=== PATIENT | male | born 1965 ===

== ENCOUNTER 2017-12-04 06:55 | Inpatient (IN) | payer OTHER ==
[2017-12-04] MEDS ORDERED: ONDANSETRON 4 MG INJ IV ×2 (09:00→20:30)
[2017-12-04] MEDS ORDERED: PROCHLORPERAZINE 10 MG INJ IV (09:00)
[2017-12-04] MEDS ORDERED: DIPHENHYDRAMINE 50 MG INJ IV (09:00)
[2017-12-04] MEDS ORDERED: HYDROmorphONE (0.2 MG/ML) 10ML SYG IV (09:00)
[2017-12-04] MEDS ORDERED: MEPERIDINE 25 MG INJ IV (09:00)
[2017-12-04] MEDS ORDERED: FENTAnyl 50 MCG/ML VIAL IV (09:00)
[2017-12-04] MEDS ORDERED: PROPOFOL 20 ML (09:01)
[2017-12-04] MEDS ORDERED: MIDAZOLAM 1 MG/ML 2 ML INJ (09:02)
[2017-12-04] MEDS ORDERED: LIDOCAINE 1% (MDV) 20 ML INJ (09:07)
[2017-12-04] MEDS ORDERED: CEFAZOLIN 1 GM INJ (09:19)
[2017-12-04] MEDS ORDERED: EPHEDrine SULFATE 50 MG/5 ML SYG ×2 (09:52→10:23)
[2017-12-04] MEDS ORDERED: ONDANSETRON 4 MG INJ (10:11)
[2017-12-04] MEDS ORDERED: FAMOTIDINE 20 MG INJ (10:11)
[2017-12-04] MEDS ORDERED: DEXAMETHASONE 4 MG/ML 1 ML INJ (10:11)
[2017-12-04] MEDS ORDERED: PHENYLephrine (100 MCG/ML) 5ML SYG ×2 (11:25→11:48)
[2017-12-04] MEDS ORDERED: GLYCOPYRROLATE 0.4 MG INJ (11:44)
[2017-12-04] MEDS: LABETALOL HCL 20MG INJ IV (12:22)
[2017-12-04] MEDS ORDERED: hydrALAzine 20 MG INJ IV (12:30)
[2017-12-04] MEDS: BENAZEPRIL 10 MG TAB PO (13:56)
[2017-12-04] MEDS: DEXTROSE 5%-0.45% NACL 1,000 ML IV (14:24)
[2017-12-04] MEDS: DOCUSATE SODIUM 100 MG CAP PO (20:50)
[2017-12-04] MEDS: HYDROCODONE/APAP (5/325) TAB PO (20:50)
[2017-12-05 05:37] LABS: ADD MAN DIFF? NO
[2017-12-05 05:41] LABS: WHITE BLOOD COUNT 12.3 10^3/ul (4.8-10.8)
[2017-12-05 05:41] LABS: BASOPHILS % 0.2 % (0.0-2.0); EOSINOPHILS # 0.1 10^3/ul (0.0-0.5); EOSINOPHILS % 0.6 % (0.0-7.0); HEMATOCRIT 41.2 % (42.0-52.0); HEMOGLOBIN 13.9 g/dl (14.0-18.0); LYMPHOCYTES # 1.9 10^3/ul (0.8-2.9); LYMPHOCYTES % 15.3 % (15.0-51.0); MEAN CORPUSCULAR HEMOGLOBIN 29.1 pg (29.0-33.0); MEAN CORPUSCULAR HGB CONC 33.7 g/dl (32.0-37.0); MEAN CORPUSCULAR VOLUME 86.2 fl (82.0-101.0); MEAN PLATELET VOLUME 9.7 fl (7.4-10.4); MONOCYTES % 8.3 % (0.0-11.0); NEUTROPHIL # 9.3 10^3/ul (1.6-7.5); NEUTROPHILS % 75.2 % (39.0-77.0); PLATELET COUNT 278 10^3/UL (140-415); RED BLOOD COUNT 4.78 10^6/ul (4.70-6.10); RED CELL DISTRIBUTION WIDTH 13.2 % (11.5-14.5)
[2017-12-05] MEDS: DOCUSATE SODIUM 100 MG CAP PO ×2 (08:30→21:00)
[2017-12-05] MEDS: BENAZEPRIL 10 MG TAB PO (08:30)
[2017-12-05] MEDS: DEXTROSE 5%-0.45% NACL 1,000 ML IV (08:31)
[2017-12-05] MEDS: HYDROCODONE/APAP (5/325) TAB PO (08:33)
[2017-12-05 09:52] LABS: ANION GAP 15 (8-16); BLOOD UREA NITROGEN 13 mg/dl (7-20); CALCIUM 9.1 mg/dl (8.4-10.2); CARBON DIOXIDE 24 mmol/L (21-31); CHLORIDE 101 mmol/L (97-110); CREATININE 0.84 mg/dl (0.61-1.24); GLUCOSE 107 mg/dl (70-220); POTASSIUM 4.3 mmol/L (3.5-5.1); SODIUM 136 mmol/L (135-144)
[2017-12-06] MEDS: DEXTROSE 5%-0.45% NACL 1,000 ML IV (04:35)
[2017-12-06] MEDS: DOCUSATE SODIUM 100 MG CAP PO (09:07)
[2017-12-06] MEDS: BENAZEPRIL 10 MG TAB PO (09:07)
== END 2017-12-06 13:50 | disposition home or self-care (01) | DRG 714 ==
LOC: REC 06:55 → MS1 13:19
PROC: 0VT08ZZ Resection of Prostate, Via Natural or Artificial Opening Endoscopic (ICD-10-PCS; principal; 2017-12-04 09:00)
DX: N40.1 Benign prostatic hyperplasia with lower urinary tract symptoms (principal); R33.8 Other retention of urine
CPT/HCPCS: 80048; 85025; 88309